=== PATIENT | female | born 1945 | race Caucasian/White ===

== ENCOUNTER → 2016-12-09 | Outpatient (CLI) | payer MEDICARE, OTHER ==
--- NOTE | 2016-12-09 12:22 | MRI ---
EXAM DESCRIPTION: MR LUMBAR SPINE WITHOUT IV CONTRAST CLINICAL HISTORY: BACK PAIN COMPARISON: X-rays December 02, 2016. MRI April 10, 2008 TECHNIQUE: Multiplanar MRI of the lumbar spine was performed without contrast. GENERAL Severe curvature of the mid lumbar spine with convexity towards the left is again seen. There is 8 mm rightward displacement of L2 on L3 and 10 mm leftward displacement of L4 on L5. Severe disc space narrowing is seen towards the right from L2 through L4 with diffuse severe disc space narrowing at L4-5. Mild patchy Modic type 2 degenerative endplate signal changes on the right at L4-5 are seen with Modic type 1 endplate signal changes towards the right at L2-3 and L3-4. No acute compression fracture deformity of the spine is seen. Conus medullaris terminates at L1 and is unremarkable. There is clockwise rotational curvature of the mid to upper lumbar spine. The visualized intra-abdominal and retroperitoneal structures are unremarkable. Sclerotic lesion of the left sacrum seen on previous exam is not appreciated on today's exam. L1-2 Disc desiccation without disc space narrowing. 3 mm broad-based disc bulge. Minimal central canal stenosis without significant foraminal encroachment. L2-3 Disc desiccation is also seen with mild bilateral facet hypertrophic and degenerative changes. Disc bulging and mild osteophytic ridging in the inferior aspect of the neural foramen contributes to at least mild bilateral foraminal encroachment. L3-4 There is 3 mm broad-based disc bulge is again seen with at least mild bilateral facet hypertrophic and degenerative changes including ligamentum flavum thickening. Mild central canal stenosis with mild right lateral recess encroachment. There is moderate right and mild left foraminal encroachment. L4-5 There is 4-5 mm posterior circumferential ridging disc osteophyte complex with calcification in the central aspect of the disc. Moderate left greater than right facet hypertrophic and degenerative changes are seen with mild ligamentum flavum thickening. There remains mild central canal stenosis with mild left lateral recess encroachment. Moderate to severe left and mild right foraminal encroachment is again seen. L5-S1 Mild left greater than right facet hypertrophic and degenerative changes are seen contributing to mild left lateral recess encroachment. There is mild right and at least moderate left foraminal encroachment. IMPRESSION: Interval progressive worsening of disc degenerative changes throughout the lumbar spine most prominent from L2 through L5 with moderate to severe levocurvature of the mid lumbar spine. Multilevel foraminal encroachment is seen. Foraminal encroachment is most significant on the right at L3-4 and on the left from L4 through S1. Electronically signed by: Deyvi Alfredo MD 12/09/2016 12:20
== END ==
LOC: MRI 09:11
PROVIDERS: ATTEND Family Medicine
DX: M25.551 Pain in right hip (principal); M51.36 Other intervertebral disc degeneration, lumbar region

== ENCOUNTER → 2017-03-14 | Outpatient (CLI) | payer MEDICARE, OTHER ==
--- NOTE | 2017-03-14 17:35 | MAM ---
History: Well woman exam. Date of exam: 03/14/2017 Services provided: Bilateral full field digital screening mammography. CAD, the images were reviewed with R2 computer aided detection. FINDINGS: Glandular tissue is scattered glandular pattern. Comparison with 2013 study. No dominant mass, architectural distortion or clustered microcalcification. IMPRESSION: Benign exam Recommendation: Routine annual mammography BIRAD CATEGORY: 2 BENIGN Electronically signed by: Leah Rees MD 03/14/2017 5:34 PM CDT
== END | disposition home or self-care (01) ==
LOC: MAMMO 15:15
PROVIDERS: ATTEND Family Medicine
DX: Z12.31 Encounter for screening mammogram for malignant neoplasm of breast (principal)

== ENCOUNTER → 2017-04-20 | Outpatient (CLI) | payer MEDICARE, OTHER | END | disposition home or self-care (01) | LOC: GMAL 10:29 | PROVIDERS: ATTEND Family Medicine | DX: D51.3 Other dietary vitamin B12 deficiency anemia (principal); E03.9 Hypothyroidism, unspecified; E55.9 Vitamin D deficiency, unspecified ==

== ENCOUNTER → 2017-07-27 | Outpatient (CLI) | payer MEDICARE, OTHER | END | disposition home or self-care (01) | LOC: GMAL 17:44 | PROVIDERS: ATTEND Family Medicine | DX: R30.0 Dysuria (principal) ==

== ENCOUNTER → 2017-10-24 | Outpatient (CLI) | payer MEDICARE, OTHER | END | disposition home or self-care (01) | LOC: GMAL 11:41 | PROVIDERS: ATTEND Family Medicine | DX: D51.3 Other dietary vitamin B12 deficiency anemia (principal) ==

== ENCOUNTER → 2017-12-20 | Outpatient (CLI) | payer MEDICARE, OTHER ==
--- NOTE | 2017-12-20 16:18 | CT ---
EXAM DESCRIPTION: Lumbar Spine: Computed Tomography. CLINICAL HISTORY: RADICULOPATHY COMPARISON: MRI lumbar spine 04/10/2008. TECHNIQUE: Spiral, axial 5 mm scans through the lumbar spine without contrast. Coronal and sagittal 2.0 mm reconstructions. Helical axial 0.6 mm scans with bone algorithm. Total Exam DLP: 372.5 mGy-cm. This exam was performed according to our departmental CT dose-optimization program which includes automated exposure control, adjustment of the mA and/or kV according to patient size and/or use of iterative reconstruction technique; to reduce radiation dose to as low as reasonably achievable (ALARA). FINDINGS: L5-S1: Minimal disc space loss more left than right. Gas formation in the disc. Left side Disc osteophyte complex resulting in left foraminal stenosis. Minimal bulge of the disc with small calcification into the right foramen. Arthrosis in the bilateral facets more on the left than the right. Narrowing of the left subarticular recess. Posterior bilateral transpedicular screws L2-L5 with unilateral posterior connecting rods. Interbody fusion devices at each level. L4-5: Interbody fusion device in customary position. Trace retrolisthesis with posterior tissue bulging from the disc space approximately 4 mm and abutting the thecal sac. The left screw is transpedicular and posterior to the facet joint. The right screw is mostly medial to the right L5 pedicle and anterior to the right L5 facet, entering the vertebral body medial to the pedicle base. Fragmentation/fracture of the posterior pedicle of unknown age. The screw traverses the right subarticular recess, where the right L5 nerve root is descending. Both facets are widened. Grade 1 retrolisthesis. Bilateral foramina are nearly stenotic. Anterior endplate ridging. L3-4: Interbody fusion device with central ossification in customary position. No spondylolisthesis. Bilateral L4 transpedicular screws. Bilateral facet arthrosis, widened on the left. Minimal posterior bulge of tissue from the disc space. No bony complications around the hardware. Anterior endplate ridging. L2-3: Interbody fusion device in customary position with minimal central ossification. Small Schmorl's nodes in the L2 endplate. Minimal posterior soft tissue bulge into the canal. No spondylolisthesis. Bilateral L3 transpedicular screws with no bony complications and medial to the facet joints with bilateral moderate arthrosis. Possible stenosis right foramen and mild narrowing on the left. Anterior endplates ridging. L1-2: Anterior endplate ridging. Posterior disc space narrowing. Minimal posterior 3 mm bulge. No spondylolisthesis. Bilateral foraminal narrowing more on the left due to disc bulge, and bilateral facet arthrosis. Bilateral L2 transpedicular screws customary position, posterior and lateral to the facet joints with no bony complications. T12-L1: Disc space maintained. Canal and foramina are patent. Bilateral facet arthrosis more left than right. L1-L4 levoscoliosis. No compression type vertebral body fractures. IMPRESSION: 1. L5-S1 disc space loss disc bulging and left side disc osteophyte complex causing foraminal stenosis. 2. Right side L5 pedicle screw enters the vertebral body medial to the base of the pedicle and traverses the right subarticular recess where the descending right L5 nerve root courses. Screw is mostly medial to the pedicle; posterior aspect abutting the facet appears to have been fractured/fragmented, unknown age. 3. Bilateral L4 transpedicular screws and L3-4 interbody fusion device in customary position. Small Schmorl's nodes. Bilateral moderate facet arthrosis. 4. Bilateral L3 transpedicular screws and L2-3 interbody fusion device Customary position. Possible bony stenosis right foramen. 5. Posterior L1-2 disc bulge. Bilateral L2 transpedicular screws customary position. 6. Scoliosis was present on the prior MRI exam, but there was no hardware or fusion construct in the lumbar spine at the time of the prior exam. Electronically signed by: Jenaro Quiroz MD 12/20/2017 4:17 PM [facility]
== END | disposition home or self-care (01) ==
LOC: CT 10:00
PROVIDERS: ATTEND Orthopaedic Surgery Orthopaedic Surgery of the Spine
DX: M54.16 Radiculopathy, lumbar region (principal); M48.061 Spinal stenosis, lumbar region without neurogenic claudication

== ENCOUNTER → 2018-03-30 | Outpatient (CLI) | payer MEDICARE, OTHER ==
--- NOTE | 2018-03-31 09:41 | US ---
EXAM DESCRIPTION: Venous Doppler sonogram,Lower Extremity LT Venous Doppler sonogram, lower extremity right CLINICAL HISTORY: EDEMA COMPARISON: None Available. TECHNIQUE: Right and left lower extremity venous duplex FINDINGS: Doppler evaluation of the right and left lower extremity deep veins was performed. Normal color flow is seen in the common femoral, superficial femoral, profunda femoral and greater saphenous veins. Normal flow is seen in the bilateral popliteal veins and veins below the knee in the calf. Normal venous compressibility and flow augmentation. IMPRESSION: Negative for evidence of deep venous thrombosis on right and left lower extremity venous Doppler sonogram. Electronically signed by: Riley Newberry MD 03/31/2018 9:40 AM CDT
== END ==
LOC: US 14:00
PROVIDERS: ATTEND Family Medicine
DX: R60.1 Generalized edema (principal)

== ENCOUNTER → 2018-06-01 | Outpatient (CLI) | payer MEDICARE, OTHER | LOC: GMATM 17:25 | PROVIDERS: ATTEND Nurse Practitioner Family | DX: R30.0 Dysuria (principal) ==

== ENCOUNTER → 2018-08-01 | Outpatient (CLI) | payer MEDICARE, OTHER | LOC: GMAL 14:31 | PROVIDERS: ATTEND Family Medicine | DX: E03.9 Hypothyroidism, unspecified (principal); E55.9 Vitamin D deficiency, unspecified ==

== ENCOUNTER → 2018-10-05 | Outpatient (CLI) | payer MEDICARE, OTHER ==
--- NOTE | 2018-10-05 17:23 | US ---
EXAM DESCRIPTION: Extremity,Lower LT Arteries CLINICAL HISTORY: 73 years Female, PVD COMPARISON: None. TECHNIQUE: EXAM DESCRIPTION: Extremity,Lower LT Arteries CLINICAL HISTORY: PVD COMPARISON: None. FINDINGS: Sonography was performed with gated duplex and color Doppler imaging. Waveforms in the left lower extremity arteries are biphasic throughout. Left common femoral peak systolic velocity: 92 cm/s, femoral artery: 125 proximal, 81 mid, 76 distal, popliteal 51 cm/s. Dorsalis pedis peak systolic velocity is 36.4 cm/s. Posterior tibial systolic velocity is 72.4 cm/s. IMPRESSION: Findings suggest peripheral vascular disease. Electronically signed by: Jenaro Petty 10/05/2018 5:21 PM [facility]
--- NOTE | 2018-10-05 17:23 | US ---
PROCEDURE: Venous,Lower Extremity LT CLINICAL HISTORY and INDICATION: Left leg swelling COMPARISON: None. TECHNIQUE: Lacy scale imaging with duplex interrogation of the left lower extremity venous system was performed and multiple static images were obtained. FINDINGS: Utilizing compression and augmentation, there is no deep venous thrombus in the common femoral, superficial femoral or popliteal veins. The profunda femoris, posterior tibial and deep peroneal veins are patent and compressible. . The greater saphenous vein at the saphenofemoral junction is patent and compressible. There is no visualization of any subcutaneous fluid collections. There is no visualization of any fluid collections in the left popliteal fossa. There is no evidence of reactive or pathological lymphadenopathy in the evaluated left lower extremity. IMPRESSION: No deep venous thrombosis of the left lower extremity. Location of Interpretation: [id number] Electronically signed by: Jt Nogueira MD 10/05/2018 5:[address] [facility] Workstation: [id number]
== END ==
LOC: US 14:00
PROVIDERS: ATTEND Nurse Practitioner Family
DX: M79.605 Pain in left leg (principal)

== ENCOUNTER → 2018-12-06 | Outpatient (CLI) | payer MEDICARE, OTHER | LOC: GMAL 12:50 | PROVIDERS: ATTEND Family Medicine | DX: D51.3 Other dietary vitamin B12 deficiency anemia (principal) ==

== ENCOUNTER → 2019-06-15 | Outpatient (CLI) | payer MEDICARE, OTHER ==
--- NOTE | 2019-06-15 21:04 | RAD ---
EXAM DESCRIPTION: Ankle,Left 3 Views CLINICAL HISTORY: 74 years Female ANKLE PAIN COMPARISON: None TECHNIQUE: Three images of the left ankle were obtained. FINDINGS: No acute fracture seen. Mild bony demineralization. No erosive or lytic lesions seen. Small calcaneal spur. IMPRESSION: No acute fracture or dislocation seen. Electronically signed by: Dinorah Regan MD 06/15/2019 9:02 PM CDT
== END ==
LOC: RAD 18:06
PROVIDERS: ATTEND Nurse Practitioner Family
DX: M25.572 Pain in left ankle and joints of left foot (principal)

== ENCOUNTER → 2019-08-14 | Outpatient (CLI) | payer MEDICARE, OTHER | LOC: GMAL 10:55 | PROVIDERS: ATTEND Family Medicine | DX: E03.9 Hypothyroidism, unspecified (principal); E55.9 Vitamin D deficiency, unspecified; E78.49 Other hyperlipidemia; Z79.899 Other long term (current) drug therapy ==

== ENCOUNTER → 2020-09-03 | Outpatient (CLI) | payer MEDICARE, OTHER | LOC: GMAL 16:38 | PROVIDERS: ATTEND Family Medicine | DX: D51.3 Other dietary vitamin B12 deficiency anemia (principal); E03.9 Hypothyroidism, unspecified; E55.9 Vitamin D deficiency, unspecified; Z79.899 Other long term (current) drug therapy; E78.49 Other hyperlipidemia ==

== ENCOUNTER → 2020-11-03 | Outpatient (CLI) | payer MEDICARE, OTHER | LOC: GMAL 17:02 | PROVIDERS: ATTEND Family Medicine | DX: M25.50 Pain in unspecified joint (principal) ==